=== PATIENT | female | born 1980 | race Two or more races ===

== ENCOUNTER 2021-02-14 10:01 | Emergency (ER) | payer OTHER, SELFPAY ==
--- NOTE | ~2021-02-14 | XR_ITS ---
EXAMINATION: XR WRIST, RIGHT CLINICAL INFORMATION: Right wrist pain. COMPARISON: None TECHNIQUE: PA, lateral, and oblique views of the right wrist. FINDINGS: The bones and soft tissues are normal. No fracture. Alignment is anatomic with normal joint spaces. No erosions or abnormal soft tissue calcifications. XR/XR wrist RT min 3V IMPRESSION: Unremarkable right wrist.
[2021-02-14 10:11] VITALS: BP 130/79; PULSE 86; RESP 18; TEMP 36.4; O2SAT 99; BMI 26.0
--- NOTE | 2021-02-14 10:21 | ED_ITS ---
HPI - Extremity Problem General Chief complaint: Extremity Injury, Upper Stated complaint: rt arm pain Time Seen by Provider: 02/14/21 10:09 Source: patient History of Present Illness HPI Narrative: 40 y.o. F presenting to the ED with right wrist pain since Monday, worsened last night. 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 She had carpal tunnel surgery 5 years ago and this pain feels worse. She states it travels to her elbow. She denies fevers, CP, SOB, neck pain, vomiting, rash. No loss of sensation. NO hx of DVT. No hx of gout. MD Complaint: extremity pain Related Data Previous Rx's Medication Instructions Recorded ibuprofen 600 mg tablet 600 mg PO Q6H PRN 7 Days #28 tab 02/14/21 Allergies Allergy/AdvReac Type Severity Reaction Status Date / Time dog dander [dogs] Allergy Cough Verified 02/14/21 10:14 Review of Systems Constitutional: Constitutional: Denies fever(s) Eyes: Eyes: Reports no additional eye complaints ENT: Denies nasal congestion Cardiovascular: Cardiovascular: Denies chest pain and Denies dyspnea Respiratory: Respiratory: Denies cough and Denies dyspnea Gastrointestinal: Gastrointestinal: Denies abdominal pain Musculoskeletal: Comments: right wrist pain Neurologic: Denies Sensory deficit (Neuro) Hematologic/Lymphatic: Hematologic/Lymphatic: Denies easy bleeding PMFSH Past Medical History Medical History (Updated 02/14/21 @ 10:54 by ELIZABETH Marroquin) No known health problems Social History Social History (Updated 02/14/21 @ 10:27 by ELIZABETH Marroquin) Advance Directives: No Advance Directives Information Provided: No Patient : No Current occupation: works in a [employer] Physical Exam Vital Signs: Vital Signs: Last Vital Signs Temp 97.6 F 02/14/21 10:11 Pulse 86 02/14/21 10:11 Resp 18 02/14/21 11:08 BP 130/79 02/14/21 10:11 Pulse Ox 99 02/14/21 10:11 Body Mass Index 26.0 Const: Other: sitting upright in the stretcher holding her right wrist General: cooperative Orientation/consciousness: patient oriented x3 HENMT: Head: Yes normal to inspection Eyes: Pupils: Equal, round and reactive pupils present Neck: Neck: Yes trachea midline and Yes supple Resp: Effort & Inspection: normal respiratory effort and able to speak in complete sentences Cardio: Other: normal peripheral perfusion GI: Inspection: No distended Back/Spine/Pelvis: Other: normal ROM Skin: Other: no rash Neuro: General: patient oriented x3 Cranial nerves: Yes Equal, round and reactive pupils present Sensory Exam: No Sensory deficit (Neuro) Extrem: Other: RUE- + palpable radial pulse, full ROM of digits, tenderness along ulnar aspect of wrist, small area of erythema, no fluctuance, no discharge, no induration, no open sores, able to passively flex/extend although limited secondary to pain, no swelling, no scaphoid tenderness, tattoos noted to forearm- no overlying erythema, no lymphangitic streaking, sensation intact, cap refill <2 seconds, no warmth, compartments soft, neurovascularly intact Psych: Appearance: grossly normal MDM - Extremity (Nontraumatic) MDM Narrative Medical decision making narrative: 40 y.o. F presenting to the ED with wrist pain VS stable, not toxic appearing, hemodynamically stable Will plan for plain film of wrist. DOubt acute fx since she denies injury. No limb swelling to suggest a DVT. No abscess. Doubt septic joint since she has no signs of systemic illness, I am able to passively range her wrist although limited secondary to pain. NO scaphoid pain to suggest underlying fx. She has no open wounds or sores. She has a small area of redness along her ulnar aspect of her wrist, could represent gout, although I would expect the entire wrist to be red and she has no accompanied warmth. Could be nerve pain given the distribution of her pain along ulnar aspect of her wrist. She does repetitively use her hands at work, will give her soft splint for comfort, encourage RICE. WIll encourage NSAIDs for pain. WIll provide her a work note. Strict return precautions were discussed. Discharge Plan Discharge Clinical Impression: Acute wrist pain Patient Disposition: Home, Self-Care Instructions: R.I.C.E. Treatment (ED) Additional Instructions: Please return to the emergency department if your symptoms worsen, increased pain, swelling, redness, warmth, fevers, difficultly moving your wrist, weakness, or any other concerning symptoms. Your xray was normal. Wear wrist splint for comfort. Get plenty of rest. Avoid heavy lifting until your wrist pain improves. Prescriptions: New ibuprofen 600 mg tablet 600 mg PO Q6H PRN (Reason: pain) 7 Days Qty: 28 RF: 0 Stand Alone Forms: Work/School Release Interventions: ED Discharge Assessment Last Done: 02/14/21 11:08 Discharge Date/Time: 02/14/21 11:09
[2021-02-14] MEDS: Ibuprofen 600 MG TABLET PO (10:31)
[2021-02-14 11:08] VITALS: RESP 18
== END 2021-02-14 11:09 | disposition home or self-care (01) ==
PROVIDERS: Emergency Provider Emergency Medicine
DX: M25.531 Pain in right wrist (principal); Z79.899 Other long term (current) drug therapy
CPT/HCPCS: 29125; 73110; 99284